=== PATIENT | male | born 1955 | race Caucasian/White ===

== ENCOUNTER 2018-05-19 14:42 | Emergency (ER) | payer OTHER ==
[~2018-05-19] VITALS: Ht 182.9 cm; Wt 99.8 kg
[2018-05-19] MEDS ORDERED: GLUCOPHAGE1000 MG PO (15:45)
[2018-05-19] MEDS ORDERED: LISINOPRIL40 MG PO (15:46)
[2018-05-19] MEDS ORDERED: HYDROCHLOROTH12.5 M1 PO (15:46)
[2018-05-19 16:18] LABS: AMP/METHAMP Negative (Negative); BARBITURATES Negative (Negative); BENZODIAZEPINES Negative (Negative); COCAINE Negative (Negative); METHADONE Negative (Negative); OPIATES Negative (Negative); PCP Negative (Negative)
[2018-05-19] MEDS ORDERED: NORCO 5-325 TA1 EACH PO (16:21)
[2018-05-19] MEDS ORDERED: IBUPROFEN 600600 M1 PO (16:21)
[2018-05-19 16:50] VITALS: BP 147/105
== END 2018-05-19 16:52 | disposition home or self-care (01) ==
LOC: ER 14:42
PROVIDERS: Nurse Practitioner
DX: S82.432A Displaced oblique fracture of shaft of left fibula, initial encounter for closed fracture (principal); W00.0XXA Fall on same level due to ice and snow, initial encounter; Y92.89 Other specified places as the place of occurrence of the external cause; Y93.01 Activity, walking, marching and hiking; Y99.8 Other external cause status